=== PATIENT | male | born 1975 | race Caucasian/White ===

== ENCOUNTER 2019-06-05 16:22 | Outpatient (CLI) | payer OTHER, SELFPAY ==
--- NOTE | 2019-06-05 11:46 | DI.RAD_ITS ---
EXAM: XR CHEST 2V PA LATERAL XR CHEST 2V PA LATERAL CLINICAL HISTORY: SHORTNESS OF BREATH, R06.02, SARCOIDOSIS, D86.9 SHORTNESS OF BREATH, R06.02, SARCOIDOSIS, D86.9 TECHNIQUE: 2D digital imaging was performed. COMPARISON: No exams were available for comparison FINDINGS: The heart is not enlarged. The lungs are clear and well expanded. No pleural effusion seen. Mediastin al contours appear intact. IMPRESSION: Normal chest
== END 2019-06-05 16:42 ==
PROVIDERS: PCP Internal Medicine; Visit Provider Nurse Practitioner Family
DX: R06.02 Shortness of breath (principal); D86.9 Sarcoidosis, unspecified
CPT/HCPCS: 71046

== ENCOUNTER 2019-08-18 17:46 | Outpatient (REF) | payer OTHER, SELFPAY ==
[2019-08-18 21:31] LABS: Absolute Basophil Count 0.02 k/cumm (0.0-0.2); Absolute Eosinophil Count 0.12 k/cumm (0.0-0.7); Absolute Lymphocyte Count 1.12 k/cumm (1.2-3.4); Absolute Monocyte Count 0.34 k/cumm (0.11-0.7); Absolute Neutrophil Count 2.83 k/cumm (1.2-6.7); Basophils % 0.5; Eosinophils % 2.7; HGB 14.6 g/dL (13.5-17.5); Lymphocytes % 25.3; Mean Corp. HGB Concentration 34.8 g/dL (32.0-36.0); Mean Corpuscular Hemoglobin 30.9 pg (27.0-33.0); Mean Platelet Volume 9.4 fL (8.0-11.0); Monocytes % 7.7; Neutrophils % 63.8; Platelet Count 244 x1000/uL (130-400); RBC 4.72 m/cumm (4.50-6.00); RBC Distribution Width 12.2 % (11.8-14.1); White Blood Cell Count 4.43 k/cumm (4.4-10.8)
[2019-08-18 21:50] LABS: ALT 31 U/L (16-63); AST 17 U/L (15-37); Anion Gap 10.1 mmol/L (3-11); BUN 21 mg/dL (7-18); CO2 27.9 mmol/L (21.0-32.0); CREATININE 0.84 mg/dL (0.70-1.30); Calcium 9.6 mg/dL (8.5-10.1); Chloride 102 mmol/L (98-107); Glucose 95 mg/dL (74-106); Potassium 4.1 mmol/L (3.5-5.1); Sodium 140 mmol/L (136-145)
[2019-08-21 15:04] LABS: 1,25-Dihydroxyvitamin D 26 pg/mL (18-64)
== END 2019-08-18 18:06 ==
LOC: NCHCN 17:46
PROVIDERS: PCP Internal Medicine; Visit Provider Nurse Practitioner Family
DX: D86.9 Sarcoidosis, unspecified (principal)
CPT/HCPCS: 80048; 82652; 84450; 84460; 85025

== ENCOUNTER 2020-08-01 10:47 | Outpatient (CLI) | payer OTHER, SELFPAY ==
[2020-08-01 20:21] LABS: COVID-19 RT-PCR UVMMC Result Negative (Negative)
== END 2020-08-01 11:07 ==
PROVIDERS: PCP Internal Medicine; Visit Provider Nurse Practitioner Family
DX: Z11.59 Encounter for screening for other viral diseases (principal)
CPT/HCPCS: U0003

== ENCOUNTER → 2022-02-28 00:20 | Outpatient (CLI) | payer OTHER, SELFPAY ==
--- NOTE | 2022-02-28 | DI.CT_ITS ---
Exam(s) CT CHEST W EXAM: CT CHEST W CLINICAL HISTORY: SARCOIDOSIS, D86.9 TECHNIQUE: Imaging Protocol: Axial computed tomography images with coronal and sagittal reformatted images were created and reviewed CONTRAST MATERIAL: Intravenous: Omnipaque 350 Contrast volume:70 ml. COMPARISON: CR XR CHEST 2V PA LATERAL from 06/05/2019 FINDINGS: Tracheobronchial tree: No bronchiectasis or mucous plugging. Mediastinum and Annie: No dominant adenopathy or fluid collection. Pulmonary parenchyma: No consolidation or dominant measurable mass. No interstitial thickening. No em physematous changes. Pleura: No effusion or pneumothorax. Heart: The heart is not dilated. No coronary artery calcifications are seen. Aorta: Thoracic aorta non-dilated. Upper abdomen: Unremarkable. Lymph nodes: Within normal limits. Bones: Normal. Soft tissues: Unremarkable. IMPRESSION: Normal CT of the thorax. RADIATION DOSE DELIVERED: 435.23mGy.cm Total [facility]LP DATA REPOSITORY: All CT scans at this facility are submitted to the National Radiology Data Registry (NRDR) Dose Index Registry (DIR) with the [employer] (ACR). RADIATION OPTIMIZATION: All CT scans at this facility use at least one of these dose optimization te chniques: automated exposure control; mA and/or kV adjustment per patient size (includes targeted exa ms where dose is matched to clinical indication); or iterative reconstruction.
[2022-02-28] MEDS: Omnipaque 350 MG/ML 100 ML BTL IJ (08:28)
== END ==
PROVIDERS: PCP Internal Medicine; Visit Provider Nurse Practitioner Family
DX: D86.9 Sarcoidosis, unspecified (principal)
CPT/HCPCS: 71260; J3490

== ENCOUNTER 2022-10-31 15:05 | Outpatient (REF) | payer OTHER, SELFPAY ==
[2022-10-31 16:06] LABS: HCT 43.6 % (40.0-50.0); HGB 15.1 g/dL (13.5-17.5); MCH 31.5 pg (27.0-33.0); MCHC 34.6 % (32.0-36.0); MCV 91 fL (80-95); MPV 9.4 fL (8.0-11.0); Platelet Count 211 10^3/uL (130-400); RBC 4.79 10^6/uL (4.36-5.78); RDW 11.9 % (11.8-14.1); RDW-SD 39.8 fL; WBC 4.09 10^3/uL (4.4-10.8)
[2022-10-31 17:07] LABS: ALT 38 U/L (16-63); AST 22 U/L (15-37); Albumin 4.2 g/dL (3.4-5.0); Alkaline Phosphatase 82 U/L (46-116); Anion Gap 5.8 mmol/L (3-11); BUN 17 mg/dL (7-18); Bilirubin, Total 0.4 mg/dL (0.2-1.0); CO2 28.2 mmol/L (21.0-32.0); CREATININE 0.9 mg/dL (0.70-1.30); Calcium 9.2 mg/dL (8.5-10.1); Calculated LDL 167 mg/dL (<100); Chloride 105 mmol/L (98-107); Cholesterol 251 mg/dL (<200); Estimated GFR 106.67 (mL/min/1.73m2); Glucose 112 mg/dL (74-106); HDL Cholesterol 66 mg/dL (40-60); Potassium 4.3 mmol/L (3.5-5.1); Sodium 139 mmol/L (136-145); Triglyceride 90 mg/dL (<150)
== END 2022-10-31 15:06 | disposition home or self-care (01) ==
LOC: NCHCN 15:05
PROVIDERS: PCP Internal Medicine; Visit Provider Nurse Practitioner Family
DX: Z00.00 Encounter for general adult medical examination without abnormal findings (principal); Z13.0 Encounter for screening for diseases of the blood and blood-forming organs and certain disorders involving the immune mechanism; Z13.220 Encounter for screening for lipoid disorders; Z13.228 Encounter for screening for other metabolic disorders
CPT/HCPCS: 80053; 80061; 85027

== ENCOUNTER 2022-11-21 01:37 | Outpatient (CLI) | payer OTHER, SELFPAY ==
--- NOTE | 2022-11-21 08:10 | DI.MRI_ITS ---
Exam(s) MR UPPER JOINT RT WO EXAM: MR UPPER JOINT RT WO CLINICAL HISTORY: RT SHOULDER PAIN, M25.511 TECHNIQUE: Multiplanar multisequence MRI of the shoulder was performed. COMPARISON: CR RIGHT SHOULDER COMPLETE from 02/09/2013 CR XR CHEST 2V PA LATERAL from 06/05/2019 FINDINGS: There are no recent plain films of the shoulder available at the time of this MRI interpretation. Mo st recent plain film images are from 2012. MARROW:There is no evidence of fracture, Hill-Sachs deformity, nor ominous osseous lesions. Os acromi margoth noted. Small degenerative subarticular cysts are noted in the posterior-lateral aspect of the hu meral head subjacent to the infraspinatus insertion site. ROTATOR CUFF MECHANISM: AC JOINT/ACROMIUM: No obvious degenerative change in the AC joint.. There is an os acromiale evident. There is no prominent bone edema on either side of this finding. Supraspinatus: Mild increased signal consistent with mild tendinitis. No evidence of high-grade tear nor muscle atrophy. Infraspinatus: Intact. No evidence of tear nor muscle atrophy. Teres Minor: Intact. No evidence of tear nor muscle atrophy. Subscapularis/anterior cuff: Mild increased signal. No high-grade tear. No evidence of atrophy. BICEPS TENDON: Biceps tendon is not displaced from the intertubercular groove. No tear. No prominent tenosynovitis. LABRUM: No labral tear identified. No evidence of paralabral cyst. GLENOHUMERAL JOINT: No joint effusion nor obvious loose intra-articular bodies. No chondral defects. No osteophytes. No degenerative subarticular cysts. No evidence of capsular tear. The inferior gle nohumeral ligament is intact. QUADRILATERAL SPACE: No evidence of mass in the region of the axillary nerve and dorsal circumflex hu meral vessels. Visualized triceps muscle at this level appears unremarkable. IMPRESSION: 1. Mild findings as described above with mild increased signal in the supraspinatus tendon but no hig h-grade rotator cuff tendon tear. No muscle atrophy. 2. No evidence of biceps tendon nor labral tear. 3. Minimal degenerative changes in the glenohumeral and AC joints. Os acromial incidentally noted. DATA REPOSITORY:
== END 2022-11-21 01:57 ==
LOC: DI 01:38
PROVIDERS: PCP Internal Medicine; Visit Provider Nurse Practitioner Family
DX: M25.511 Pain in right shoulder (principal); M75.81 Other shoulder lesions, right shoulder; M25.811 Other specified joint disorders, right shoulder
CPT/HCPCS: 73221

== ENCOUNTER 2022-12-11 14:05 | Outpatient (CLI) | payer OTHER, SELFPAY ==
--- NOTE | 2022-12-11 13:45 | DI.RAD_ITS ---
Exam(s) XR SHOULDER RT COMPLETE 2+V EXAM: XR SHOULDER RT COMPLETE 2+V CLINICAL HISTORY: shoulder pain. TECHNIQUE: 2D digital imaging was performed. COMPARISON: CR RIGHT SHOULDER COMPLETE from 02/09/2013 CR XR CHEST 2V PA LATERAL from 06/05/2019 MR MR UPPER JOINT RT WO from 11/21/2022 FINDINGS: There is a healed midshaft fracture site in right clavicle. Os acromiale is noted, as was also evident on MRI scan of 11/21/2022 No evidence of acute fracture or dislocation. No obvious degenerative changes in the glenohumeral arturo int. No obvious degenerative changes in the AC joint. Coracoid process appears unremarkable. There are no abnormal soft tissue calcifications. IMPRESSION: Humeral head and osseous glenoid appear unremarkable as is glenohumeral joint. Os acromial which appears slightly tilted on the frontal view but this may be projectional. Healed midshaft fracture of the ipsilateral clavicle DATA REPOSITORY: RADIATION DOSE DELIVERED:
== END 2022-12-11 14:06 | disposition home or self-care (01) ==
LOC: DIORS 14:06
PROVIDERS: PCP Internal Medicine; Referring Provider Internal Medicine; Visit Provider Student in an Organized Health Care Education/Training Program
DX: M25.519 Pain in unspecified shoulder (principal); M67.911 Unspecified disorder of synovium and tendon, right shoulder
CPT/HCPCS: 73030

== ENCOUNTER 2022-12-27 17:44 | Emergency (ER) | payer OTHER, SELFPAY ==
[2022-12-27 17:49] VITALS: BP 126/84; PULSE 61; RESP 16; TEMP 36.8; O2SAT 100
--- NOTE | 2022-12-27 18:45 | DI.RAD_ITS ---
Exam(s) XR FINGER RT RING EXAM: XR FINGER RT RING CLINICAL HISTORY: pain distal finger. TECHNIQUE: 2D digital imaging was performed of the right finger. Three views were obtained. PA/AP, oblique, and lateral views were obtained. COMPARISON: There are no priors for comparison. FINDINGS: BONES: No acute fracture is present. No bony destructive lesion is seen. JOINTS: No dislocation present. SOFT TISSUE: No radiopaque foreign body. IMPRESSION: No evidence of acute fracture, dislocation, or subluxation. DATA REPOSITORY: RADIATION DOSE DELIVERED:
--- NOTE | 2022-12-27 18:45 | DI.RAD_ITS ---
Exam(s) XR FINGER RT MIDDLE EXAM: XR FINGER RT MIDDLE CLINICAL HISTORY: pain distal finger. TECHNIQUE: 2D digital imaging was performed of the right finger. Three views were obtained. PA/AP, oblique, and lateral views were obtained. COMPARISON: No exams were available for comparison FINDINGS: BONES: No acute fracture is present. No bony destructive lesion is seen. JOINTS: No dislocation present. SOFT TISSUE: Normal. IMPRESSION: No evidence of acute fracture, dislocation, or subluxation. DATA REPOSITORY: RADIATION DOSE DELIVERED:
[2022-12-27] MEDS: Ibuprofen 600 MG TAB PO (19:03)
--- NOTE | 2022-12-27 19:25 | ED.GENADUL_ITS ---
Discharge Plan Disposition Patient Disposition: Home Condition: Stable Discharge Details Clinical Impression: Subungual hematoma of fingernail, Contusion of finger Primary Care Provider: Bhavesh Shah ED Provider: Ivone Jensen Home Meds and New Rx's Prescriptions: Continued sertraline 100 mg tablet 100 mg PO DAILY Discharge Instructions Instructions: Contusion in Adults (ED), Hematoma (ED) Additional Instructions: Take ibuprofen and Tylenol as needed for pain Ice as needed Repeat films in 1 week should you have persistent pain with your doctor Return earlier should you have new or worsening complaints Referrals: Bhavesh Shah MD [Primary Care Provider] - Discharge Data Discharge Date/Time-TO BE ENTERED AT DEPARTURE: 12/27/22 20:10 Medical Decision Making 47-year-old male presenting with trauma to third and fourth digits on hand X-ray was ordered for further evaluation, does not show evidence of acute abnormality per radiology interpretation my review Return precautions reviewed and patient expressed understanding Repeat imaging in 1 week with persistent pain HPI General Date/Time Provider Initiated Documentation: 12/27/22 18:42 . HPI Narrative: This 47-year-old male presents with injury to right hand just prior to arrival. He closed his third and fourth digits in the car door. Denies any additional complaints. Related Data Home Medications Medication Instructions Recorded Confirmed sertraline 100 mg tablet 100 mg PO DAILY 11/27/22 12/27/22 Allergies Allergy/AdvReac Type Severity Reaction Status Date / Time No Known Drug Allergies Allergy Unverified 12/27/22 17:52 General Stated Complaint: Orthopedic YESSICA: 4 PFSH All Active Problems (Updated 12/27/22 @ 20:00 by CHINEDU Calderon) Subungual hematoma of fingernail (Acute) Contusion of finger (Acute) Tendinopathy of right rotator cuff (Acute) Medical History (Updated 12/27/22 @ 20:00 by CHINEDU Calderon) Generalized anxiety disorder Sarcoidosis Social History Smoking/Tobacco Use Status: Never Smoking risk assessment performed?: Yes Alcohol Intake: current Alcohol Intake frequency: a few times a week Drug use: Never Substance use type: does not use Current gender identity: male Do you feel safe at home: Yes Do you feel safe in your relationship?: Yes Exam Extrem Other: Right third and fourth digit ecchymosis, tenderness, no evidence of open fracture, no tenderness to hand or proximal phalanx Course Vital Signs Vital signs: Vital Signs Temperature 36.8 C 12/27/22 17:49 Pulse 61 12/27/22 17:49 Respiratory Rate 16 12/27/22 17:49 Blood Pressure 126/84 12/27/22 17:49 Pulse Oximetry 100 12/27/22 17:49 Temperature 36.8 C 12/27/22 17:49 Temperature Source Temporal Artery Scan 12/27/22 17:49 Pulse 61 12/27/22 17:49 Respiratory Rate 16 12/27/22 17:49 Respiratory Effort Normal, Non-Labored 12/27/22 17:53 Blood Pressure 126/84 12/27/22 17:49 Blood Pressure Position Sitting 12/27/22 17:49 Pulse Oximetry 100 12/27/22 17:49 Oxygen Delivery Method Room Air 12/27/22 17:49 Oxygen Flow Rate 0 12/27/22 17:49 PAWSS Have you Been Recently Intoxicated or Drunk Within the Last 30 days?: No Have you Ever Experienced Previous Episodes of Alcohol Withdrawal?: No Have you ever Experienced Withdrawal Seizures?: No Have you ever Experienced Delirium Tremens(DT)s?: No Have you ever undergone Alcohol Rehabilitation Treatment (i.e, inpt ot outpatient treatment programs)?: No Have you ever Experienced Blackouts?: No Have you ever Combined Alcohol with other Downers within the last 90 days?: No Have you ever Combined Alcohol with any other Substance of Abuse during the last 90 days?: No Positive Blood Alcohol level on Presentation? [PCS.BAL]: No Evidence of Increased Autonomic Activity (i.e. HR>120, tremor, sweating, agitation, nausea)?: No Result: 0
--- NOTE | 2022-12-27 20:06 | DI.VRAD_ITS ---
PROCEDURE INFORMATION: Exam: XR Right Finger(s) Exam date and time: 12/27/2022 7:31 PM Age: 47 years old Clinical indication: Injury or trauma; Crushing; Right; Middle finger; Injury date: 12/27/22; Injury details: Fingers shut in door, distal pain TECHNIQUE: Imaging protocol: Radiologic exam of the right fingers. Views: Minimum 2 views. COMPARISON: MR UPPER JOINT RT WO 11/21/2022 7:40 AM FINDINGS: Bones/joints: Normal. Soft tissues: Normal. IMPRESSION: No acute findings. Dictated and Authenticated by: Alok Lott MD. Ordering:TANK Wiseman MD
--- NOTE | 2022-12-27 20:07 | DI.VRAD_ITS ---
PROCEDURE INFORMATION: Exam: XR Right Finger(s) Exam date and time: 12/27/2022 7:32 PM Age: 47 years old Clinical indication: Injury or trauma; Other: Shut in door; Crushing; Right; Ring finger; Injury date: 12/27/22; Injury details: Fingers sut in door, distal pain TECHNIQUE: Imaging protocol: Radiologic exam of the right fingers. Views: Minimum 2 views. COMPARISON: CR XR FINGER RT MIDDLE 12/27/2022 7:31 PM FINDINGS: Bones/joints: No fracture. No dislocation. Soft tissues: Soft tissue swelling. No foreign body. IMPRESSION: 1. No fracture or dislocation. 2. Soft tissue swelling. No gas or foreign body. Dictated and Authenticated by: Alok Lott MD. Ordering:TANK Wiseman MD
== END 2022-12-27 20:10 | disposition home or self-care (01) ==
PROVIDERS: Emergency Provider Physician Assistant; PCP Internal Medicine
DX: S60.031A Contusion of right middle finger without damage to nail, initial encounter (principal); S60.041A Contusion of right ring finger without damage to nail, initial encounter; W23.0XXA Caught, crushed, jammed, or pinched between moving objects, initial encounter
CPT/HCPCS: 99282; 73140; 99283

== ENCOUNTER 2023-11-06 10:36 | Outpatient (REF) | payer OTHER, SELFPAY ==
[2023-11-06 14:33] LABS: HGB 14.5 g/dL (13.5-17.5); MCH 30.9 pg (27.0-33.0); MCHC 34.5 % (32.0-36.0); MCV 89 fL (80-95); MPV 9.1 fL (8.0-11.0); Platelet Count 211 10^3/uL (130-400); RDW 11.9 % (11.8-14.1); RDW-SD 38.5 fL; WBC 3.66 10^3/uL (4.4-10.8)
[2023-11-06 14:57] LABS: ALT 36 U/L (16-63); AST 17 U/L (15-37); Alkaline Phosphatase 76 U/L (46-116); Anion Gap 8.8 mmol/L (3-11); BUN 18 mg/dL (7-18); Bilirubin, Total 0.3 mg/dL (0.2-1.0); CO2 26.2 mmol/L (21.0-32.0); CREATININE 0.9 mg/dL (0.70-1.30); Calcium 9.1 mg/dL (8.5-10.1); Calculated LDL 168 mg/dL (<100); Chloride 104 mmol/L (98-107); Cholesterol 250 mg/dL (<200); Estimated GFR 106.01 (mL/min/1.73m2); Glucose 109 mg/dL (74-106); HDL Cholesterol 59 mg/dL (40-60); Potassium 4.1 mmol/L (3.5-5.1); Sodium 139 mmol/L (136-145); Triglyceride 117 mg/dL (<150)
== END 2023-11-06 10:37 | disposition home or self-care (01) ==
LOC: NCHCN 10:36
PROVIDERS: PCP Internal Medicine; Visit Provider Nurse Practitioner Family
DX: Z00.00 Encounter for general adult medical examination without abnormal findings (principal)
CPT/HCPCS: 80053; 80061; 85027

== ENCOUNTER 2025-01-07 09:02 | Outpatient (REF) | payer OTHER, SELFPAY ==
[2025-01-07 15:30] LABS: HCT 45.3 % (40.0-50.0); HGB 15.4 g/dL (13.5-17.5); MCH 30.7 pg (27.0-33.0); MCV 90 fL (80-95); MPV 9.1 fL (8.0-11.0); Platelet Count 228 10^3/uL (130-400); RBC 5.01 10^6/uL (4.36-5.78); RDW-SD 39.6 fL; WBC 4.46 10^3/uL (4.4-10.8)
[2025-01-07 16:05] LABS: ALT 39 U/L (16-63); AST 25 U/L (15-37); Albumin 4.1 g/dL (3.4-5.0); Alkaline Phosphatase 89 U/L (46-116); Anion Gap 5.5 mmol/L (3-11); BUN 17 mg/dL (7-18); Bilirubin, Total 0.4 mg/dL (0.2-1.0); CO2 30.5 mmol/L (21.0-32.0); CREATININE 0.9 mg/dL (0.70-1.30); Calcium 9.4 mg/dL (8.5-10.1); Chloride 103 mmol/L (98-107); Estimated GFR 105.35 (mL/min/1.73m2); Glucose 107 mg/dL (74-106); Potassium 4.3 mmol/L (3.5-5.1); Sodium 139 mmol/L (136-145); Total Protein 6.8 g/dL (6.4-8.2)
== END 2025-01-07 09:03 | disposition home or self-care (01) ==
LOC: NCHCN 09:02
PROVIDERS: PCP Nurse Practitioner Family; Visit Provider Nurse Practitioner Family
DX: Z00.00 Encounter for general adult medical examination without abnormal findings (principal)
CPT/HCPCS: 80053; 85027

== ENCOUNTER 2025-04-28 13:25 | Outpatient (CLI) | payer OTHER, SELFPAY ==
--- NOTE | 2025-04-28 12:35 | DI.RAD_ITS ---
Exam(s) XR CHEST 2V PA LATERAL EXAM: XR CHEST 2V PA LATERAL CLINICAL HISTORY: ACUTE COUGH, R05.1. TECHNIQUE: 2D digital imaging was performed. COMPARISON: CR XR CHEST 2V PA LATERAL from 06/05/2019 FINDINGS: 2 views: Heart size is normal. The mediastinum is not widened. Lungs are clear. No infiltrates nor pleural effusions. IMPRESSION: No acute pulmonary findings. DATA REPOSITORY: RADIATION DOSE DELIVERED:
== END 2025-04-28 13:45 ==
LOC: DI 06-11 13:25
PROVIDERS: PCP Family Medicine; Visit Provider Nurse Practitioner Family
DX: R05.1 Acute cough (principal)
CPT/HCPCS: 71046

== ENCOUNTER 2025-04-30 02:54 | Emergency (ER) | payer OTHER, SELFPAY ==
[2025-04-30] VITALS (17 sets, daily range): BP systolic 123–140; BP diastolic 77–96; PULSE 59–101; RESP 18; TEMP 37.2; O2SAT 90–98
--- NOTE | 2025-04-30 03:15 | DI.RAD_ITS ---
Exam(s) XR CHEST 2V PA LATERAL EXAM: XR CHEST 2V PA LATERAL CLINICAL HISTORY: sob TECHNIQUE: 2D digital imaging was performed of the chest. Two images were obtained. PA and lateral views were obtained. COMPARISON: CR XR CHEST 2V PA LATERAL from 06/05/2019 CR XR CHEST 2V PA LATERAL from 04/28/2025 FINDINGS: MEDIASTINUM: Normal. HEART: Normal. PULMONARY VASCULATURE: Normal. LUNGS: Clear. PLEURAL SPACE: No pleural effusion or pneumothorax. BONE:Within normal limits for the patient's age. OTHER FINDINGS:Normal. IMPRESSION: 1. No acute pulmonary findings. 2. The preliminary [facility] report was reviewed. DATA REPOSITORY: RADIATION DOSE DELIVERED:
--- NOTE | 2025-04-30 03:26 | W.ED.GENAD ---
Discharge Plan Disposition Patient Disposition: Home Condition: Good Discharge Details Clinical Impression: Bronchitis Primary Care Provider: Carol Welch ED Provider: Marylin Villa Home Meds and New Rx's Prescriptions: Continued sertraline 100 mg tablet 100 mg PO DAILY albuterol sulfate 90 mcg/actuation HFA aerosol inhaler 2 puff INHALATION PRN Patient Comments: INHALE TWO PUFFS BY MOUTH EVERY 4 HOURS NEEDED FOR SHORTNESS OF BREATH COUGH OR WHEEZE azithromycin 250 mg tablet 250 mg PO DAILY Discharge Instructions Instructions: Bronchitis, Adult ED Additional Instructions: Continue to use your inhaler as needed at home. Call your primary care doctor in the morning to schedule an appointment to be seen within the next 72 hours to followup on your visit today. Return to the emergency deaprtment for new or worsening symptoms including fever higher than 100.4F, coughing up blood, of your breathing worsens, or if you have any other concerns. HPI General Mode of arrival: ambulatory. Date/Time Provider Initiated Documentation: 04/30/25 03:09. Limitations to Documentation: no limitations. Information obtained by: patient and family. HPI Narrative: 50yo M presenting with three weeks of cough. Initially started with cough, SOB, and rhinnorhea. Seemed to get better and then got worse again. Cough is keeping him awake tonight, once he gets started feels like he can't stop. No chest pain. Has seen his PCP and been to urgent care, reports starting antibiotics yesterday for 'walking pneumonia'. No fevers, chills, or rash. No sick contacts. No history of asthma or COPD. Is otherwise in his usual state of health. Related Data Home Medications ?Medication ?Instructions ?Recorded ?Confirmed sertraline 100 mg tablet 100 mg PO DAILY 11/27/22 04/30/25 albuterol sulfate 90 mcg/actuation 2 puff inhalation PRN 04/30/25 aerosol inhaler azithromycin 250 mg tablet 250 mg PO DAILY 04/30/25 04/30/25 Allergies Allergy/AdvReac Type Severity Reaction Status Date / Time No Known Drug Allergies Allergy Unknown Unknown Verified 04/30/25 03:09 General Stated Complaint: RespSymp YESSICA: 3 Review of Systems Narrative: see HPI Exam Narrative Exam Narrative: General: Alert, well appearing, well nourished, in no acute distress. Head: Normocephalic, atraumatic Neck: Trachea midline, ?Neck supple. ENT: ?MMM.? +nasal congestion, rhinnorhea Cardiac: ?RRR, no murmurs appreciated Resp: No respiratory distress. Slight expiratory wheeze, otherwise CTAB. No increased WOB. +cough triggered by deep breathing. Abd: ?Non-distende : ?No suprapubic tenderness. No CVA tenderness. Extremities: ?No deformities.? No peripheral edema. Neurologic: GCS 15. ? Moves all extremities freely against gravity Course Vital Signs Vital signs: Vital Signs Temperature 37.2 C 04/30/25 03:06 Pulse 86 04/30/25 03:06 Respiratory Rate 18 04/30/25 03:06 Blood Pressure 140/96 H 04/30/25 03:06 Pulse Oximetry 97 04/30/25 03:06 Temperature 37.2 C 04/30/25 03:06 Temperature Source Oral 04/30/25 03:06 Pulse 85 04/30/25 03:10 Respiratory Rate 18 04/30/25 03:10 Respiratory Effort Normal, Short of Breath 04/30/25 03:10 Respiratory Depth Normal 04/30/25 03:10 Blood Pressure 140/96 H 04/30/25 03:10 Pulse Oximetry 95 04/30/25 03:10 Oxygen Delivery Method Room Air 04/30/25 03:10 Pain Level 6 04/30/25 03:10 Medical Decision Making 50yo M presenting with three weeks of cough. Initially started with cough, SOB, and rhinnorhea; seemed to get better and then got worse again. Started on antibiotics yesterday for 'walking pneumonia'; tonight cough is keeping him awake and so presents to the ED. Productive of clear sputum. Vital signs reassuring on arrival. No respiratory distress; does have slight expiratory wheeze with no increased WOB. History not suggestive of ACS, pulmonary embolism, heart failure. Will treat with albuterol neb. Given duration of symptoms, will send labs and get CXR. -Labs reviewed as below, CBC reassuring with no leukocytosis or anemia, CMP with no actionable abnormalities, VBG reassuring. Respiratory viral swab negative for covid and flu. -CXR independently reviewed; no focal pneumonia or pneumothorax on my radiology read with no acute findings. On reassessment he reports his breathing feels better. Able to take deep breaths without coughing. No longer wheezing on exam. Advised symptomatic treatment at home, close PCP followup. Discharged home; discharge instructions and return precautions were reviewed with patient who verbalized understanding. All questions were answered and he is in full agreement with the plan. Medical Records Medical records reviewed: Yes I reviewed the patient's medical records. Medical records narrative: Laboratory Tests Range/Units 04/30/25 04/30/25 03:37 03:45 WBC (4.4-10.8) 10^3/uL 5.89 RBC (4.36-5.78) 10^6/uL 4.73 Hgb (13.5-17.5) g/dL 14.7 Hct (40.0-50.0) % 42.6 MCV (80-95) fL 90 MCH (27.0-33.0) pg 31.1 MCHC (32.0-36.0) % 34.5 RDW (11.8-14.1) % 12.3 Plt Count (130-400) 10^3/uL 185 MPV (8.0-11.0) fL 8.5 Immature Gran % % 0.3 Neutrophils % % 57.5 Lymphocytes % % 20.7 Monocytes % % 7.1 Eosinophils % % 13.4 Basophils % % 1.0 Nucleated RBC % (0.0-0.3) % 0.0 Absolute Neutrophils (1.2-6.7) 10^3/uL 3.38 Absolute Lymphocytes (1.2-3.4) 10^3/uL 1.22 Absolute Monocytes (0.1-0.8) 10^3/uL 0.42 Absolute Eosinophils (0.0-0.7) 10^3/uL 0.79 H Absolute Basophils (0.0-0.2) 10^3/uL 0.06 VBG pH (7.31-7.41) 7.39 VBG pCO2 (41-51) mmHg 40 L VBG pO2 mmHg 60 VBG HCO3 (23-28) mmol/L 24 VBG Total CO2 (24-29) mmol/L 21 L VBG O2 Saturation % 90 VBG Base Excess (-2-3) mmol/L -1 Sodium (136-145) mmol/L 140 Potassium (3.5-5.1) mmol/L 4.0 Chloride (98-107) mmol/L 106 Carbon Dioxide (21.0-32.0) mmol/L 26.1 Anion Gap (3-11) mmol/L 7.9 BUN (7-18) mg/dL 17 Creatinine (0.70-1.30) mg/dL 1.0 Est GFR (CKD-EPI 2020) (mL/min/1.73m2) 92.26 Glucose (74-106) mg/dL 114 H Calcium (8.5-10.1) mg/dL 8.8 Total Bilirubin (0.2-1.0) mg/dL 0.5 AST (15-37) U/L 16 ALT (16-63) U/L 30 Alkaline Phosphatase (46-116) U/L 98 Total Protein (6.4-8.2) g/dL 6.9 Albumin (3.4-5.0) g/dL 3.9 COVID-19 Source Nasopharynx SARS-CoV-2 (PCR) (Negative) Negative Influenza Type A (PCR) (Negative) Negative Influenza Type B (PCR) (Negative) Negative RSV (PCR) (Negative) Negative PFSH All Active Problems (Updated 04/30/25 @ 04:53 by Marylin Villa MD) Bronchitis (Acute) Tendinopathy of right rotator cuff (Acute) Medical History (Updated 04/30/25 @ 04:53 by Marylin Villa MD) Sarcoidosis Generalized anxiety disorder Social History Smoking/Tobacco Use Status: Never Smoking risk assessment performed?: Yes Alcohol Intake: current Alcohol Intake frequency: a few times a week Drug use: Never Substance use type: does not use Current gender identity: male Do you feel safe at home: Yes Do you feel safe in your relationship?: Yes PAWSS Have you Been Recently Intoxicated or Drunk Within the Last 30 days?: No Have you Ever Experienced Previous Episodes of Alcohol Withdrawal?: No Have you ever Experienced Withdrawal Seizures?: No Have you ever Experienced Delirium Tremens(DT)s?: No Have you ever undergone Alcohol Rehabilitation Treatment (i.e, inpt ot outpatient treatment programs)?: No Have you ever Experienced Blackouts?: No Have you ever Combined Alcohol with other Downers within the last 90 days?: No Have you ever Combined Alcohol with any other Substance of Abuse during the last 90 days?: No Positive Blood Alcohol level on Presentation? [PCS.BAL]: No Evidence of Increased Autonomic Activity (i.e. HR>120, tremor, sweating, agitation, nausea)?: No Result: 0
[2025-04-30 03:42] LABS: BE (Venous) -1 mmol/L (-2-3); HCO3 (Venous) 24 mmol/L (23-28); O2 Sat (Venous) 90 %; TCO2 (Venous) 21 mmol/L (24-29); pCO2 (Venous) 40 mmHg (41-51); pO2 (Venous) 60 mmHg
[2025-04-30] MEDS: Albuterol 2.5 MG/3 ML INH SOLN VIAL UPD (03:42)
[2025-04-30 03:44] LABS: Abs Immature Grans 0.02 10^3/uL (0.0-0.06); HCT 42.6 % (40.0-50.0); HGB 14.7 g/dL (13.5-17.5); Immature Grans % 0.3 %; MCH 31.1 pg (27.0-33.0); MCHC 34.5 % (32.0-36.0); MCV 90 fL (80-95); MPV 8.5 fL (8.0-11.0); Platelet Count 185 10^3/uL (130-400); RBC 4.73 10^6/uL (4.36-5.78); RDW 12.3 % (11.8-14.1); RDW-SD 41.1 fL; WBC 5.89 10^3/uL (4.4-10.8)
[2025-04-30 04:02] LABS: ALT 30 U/L (16-63); AST 16 U/L (15-37); Albumin 3.9 g/dL (3.4-5.0); Alkaline Phosphatase 98 U/L (46-116); Anion Gap 7.9 mmol/L (3-11); BUN 17 mg/dL (7-18); Bilirubin, Total 0.5 mg/dL (0.2-1.0); CO2 26.1 mmol/L (21.0-32.0); Calcium 8.8 mg/dL (8.5-10.1); Chloride 106 mmol/L (98-107); Estimated GFR 92.26 (mL/min/1.73m2); Glucose 114 mg/dL (74-106); Potassium 4.0 mmol/L (3.5-5.1); Sodium 140 mmol/L (136-145); Total Protein 6.9 g/dL (6.4-8.2)
[2025-04-30 04:24] LABS: COVID-19 PCR Negative (Negative); RSV PCR Negative (Negative)
--- NOTE | 2025-04-30 04:43 | DI.VRAD_ITS ---
PROCEDURE INFORMATION: Exam: XR Chest Exam date and time: 04/30/2025 3:35 AM Age: 50 years old Clinical indication: Cough and shortness of breath; SOB, cough TECHNIQUE: Imaging protocol: Radiologic exam of the chest. Views: 2 views. COMPARISON: 1. CR XR CHEST 2V PA LATERAL 04/28/2025 12:30 PM 2. CR XR CHEST 2V PA LATERAL 06/05/2019 11:44 AM FINDINGS: Lungs: No consolidation or pulmonary edema. Pulmonary vasculature is normal in caliber. Pleural spaces: No pleural effusion or pneumothorax. Heart/Mediastinum: Heart size is normal. Cardiomediastinal contours are stable and satisfactory. Bones/joints: Old healed fracture of the mid right clavicle. No acute abnormality. IMPRESSION: No active disease in the chest. Dictated and Authenticated by: Ling Asher MD. Orderin Allen Coulter MD
== END 2025-04-30 05:06 | disposition home or self-care (01) ==
PROVIDERS: Emergency Provider Student in an Organized Health Care Education/Training Program; PCP Nurse Practitioner Family
DX: J40 Bronchitis, not specified as acute or chronic (principal)
CPT/HCPCS: 99283; 99284; 94640; 80053; 82805; 87637; 71046; 85025; J7613

== ENCOUNTER 2025-05-12 11:30 | Outpatient (CLI) | payer OTHER, SELFPAY ==
[2025-05-12] MEDS: Normal Saline - Diluent 50 ML VIAL IJ (11:19)
[2025-05-12] MEDS: Normal Saline Flush 10 ML SYR IVP (11:19)
[2025-05-12] MEDS: Omnipaque 350 MG/ML 500 ML BTL-Imaging package IJ (11:21)
--- NOTE | 2025-05-12 11:25 | DI.CT_ITS ---
Exam(s) CT CHEST W EXAM: CT CHEST W CLINICAL HISTORY: SARCOIDOSIS, D86.9 TECHNIQUE: Imaging Protocol: Axial computed tomography images with coronal and sagittal reformatted images were created and reviewed. Computer aided detection (CAD) was utilized. CONTRAST MATERIAL: Intravenous: Omnipaque 350 Contrast volume:70 ml. COMPARISON: CT CT CHEST W from 02/28/2022 CR,XR XR CHEST 2V PA LATERAL from 04/30/2025 FINDINGS: Pulmonary parenchyma: No consolidation. No dominant measurable mass. No abnormal interstitial changes. No pulmonary nodules. Tracheobronchial tree: No bronchiectasis or mucous plugging. Mediastinum and Annie: No dominant adenopathy or fluid collection. Pleura: No effusion. No pneumothorax. Heart: The heart is not dilated. No coronary artery calcifications are seen. Aorta: Thoracic aorta non-dilated. No atherosclerotic changes. Pulmonary arteries: No gross evidence of emboli. Upper abdomen: No acute findings. Bones: 2 normal for patient age. Soft tissues: Unremarkable. IMPRESSION: The chest CT. RADIATION DOSE DELIVERED: 165.42mGy.cm Total DLP DATA REPOSITORY: All CT scans at this facility are submitted to the National Radiology Data Registry (NRDR) Dose Index Registry (DIR) with the [employer] (ACR). RADIATION OPTIMIZATION: All CT scans at this facility use at least one of these dose optimization techniques: automated exposure control; mA and/or kV adjustment per patient size (includes targeted exams where dose is matched to clinical indication); or iterative reconstruction.
== END 2025-05-12 11:50 ==
PROVIDERS: PCP Nurse Practitioner Family; Visit Provider Nurse Practitioner Family
DX: D86.89 Sarcoidosis of other sites (principal)
CPT/HCPCS: 71260

== ENCOUNTER 2025-05-19 02:10 | Emergency (ER) | payer OTHER, SELFPAY ==
--- NOTE | 2025-05-19 02:12 | W.ED.GENAD ---
Discharge Plan Disposition Patient Disposition: Home Condition: Good Discharge Details Clinical Impression: Right-sided chest wall pain Primary Care Provider: Taurus Novoa ED Provider: Baldemar Newman [place] Meds and New Rx's Prescriptions: New methocarbamol 500 mg tablet 1,000 mg PO TID PRN (Reason: muscle spasm) Qty: 30 0RF lidocaine 5 % adhesive patch,medicated 1 patch topical DAILY Qty: 15 0RF Rx Instructions: leave on most painful area for up to 12 hrs Continued omeprazole 20 mg capsule,delayed release(DR/EC) 20 mg PO DAILY Patient Comments: TAKE ONE CAPSULE BY MOUTH EVERY DAY budesonide-formoterol [Breyna] 160-4.5 mcg/actuation HFA aerosol inhaler 2 puff inhalation BID Qty: 10.2 6RF sertraline 100 mg tablet 100 mg PO DAILY albuterol sulfate 90 mcg/actuation HFA aerosol inhaler 2 puff INHALATION PRN Patient Comments: INHALE TWO PUFFS BY MOUTH EVERY 4 HOURS NEEDED FOR SHORTNESS OF BREATH COUGH OR WHEEZE Discharge Instructions Additional Instructions: You were seen for right sided chest and flank pain. Your exam, labs, chest x-ray are reassuring and your symptoms improved with lidocaine patch and muscle relaxer. I would continue alternating acetaminophen with ibuprofen and using heat on and off as you have been doing. I will send prescriptions for lidocaine patches and methocarbamol to your pharmacy. Follow-up with primary care next week. Return to ED for new or worsening pain, syncope, increasing shortness of breath, fever, abdominal pain, other concerns. Referrals: Taurus Novoa MD [Primary Care Provider, Medicine] [facility] General Mode of arrival: ambulatory. Date/Time Provider Initiated Documentation: 05/19/25 02:12. Limitations to Documentation: no limitations. Information obtained by: patient, RN notes reviewed and old records reviewed. HPI Narrative: Patient presents to ED with right sided flank pain. Patient states that he thinks he pulled a muscle at work last week. He also has been having trouble with asthma and cough, just seen pulmonary yesterday. Thinks the coughing is aggravating the pain that he is having in the right side. Tonight was coughing and developed much worse pain, sharp stabbing instances of pain, maybe some increased shortness of breath but cannot really tell if it is related to pain or true dyspnea. Not having pain elsewhere. Has had no hematuria. Denies fever. Denies abdominal pain, vomiting or diarrhea. Denies any leg pain or leg swelling. Had ibuprofen this evening with dinner. Found an old prescription of Tylenol with oxycodone which she took about an hour prior to coming in but with no relief of his pain. Related Data Home Medications ?Medication ?Instructions ?Recorded ?Confirmed sertraline 100 mg tablet 100 mg PO DAILY 11/27/22 05/18/25 albuterol sulfate 90 mcg/actuation 2 puff inhalation PRN 04/30/25 05/18/25 aerosol inhaler budesonide-formoterol HFA 160 2 puff inhalation BID #10.2 grams 05/18/25 05/18/25 mcg-4.5 mcg/actuation aerosol inhaler (Breyna) omeprazole 20 mg capsule,delayed 20 mg PO DAILY 05/18/25 05/18/25 release lidocaine 5 % topical patch 1 patch topical DAILY #15 ea 05/19/25 methocarbamol 500 mg tablet 1,000 mg (2 x 500 mg) PO TID PRN 05/19/25 muscle spasm #30 tabs Previous Rx's ?Medication ?Instructions ?Recorded budesonide-formoterol HFA 160 2 puff inhalation BID #10.2 grams 05/18/25 mcg-4.5 mcg/actuation aerosol inhaler (Breyna) lidocaine 5 % topical patch 1 patch topical DAILY #15 ea 05/19/25 methocarbamol 500 mg tablet 1,000 mg (2 x 500 mg) PO TID PRN 05/19/25 muscle spasm #30 tabs Allergies Allergy/AdvReac Type Severity Reaction Status Date / Time No Known Drug Allergies Allergy Unknown Unknown Verified 05/18/25 14:37 General YESSICA: 3 Exam Narrative Exam Narrative: Const: WDWN male appears very uncomfortable holding his right flank/lower ribs. VS per triage. HEENT: NC/AT. Normal facial exam. Neck: Supple. Trachea midline. Lungs: Normal respiratory effort. Lungs are clear. Cor: RRR without murmur. Good radial pulses. GI: Soft/ND/NT. Neuro: A+O x 3. Normal speech, mentation, gait. Cranial nerves II - XII grossly intact. No gross motor or sensory deficit. Medical Decision Making Patient presenting to ED with right mid flank pain, holding his right lower ribs and upper flank. He relates that to injury at work last week that continues to get reaggravated when he has coughing fits. Denies fever, hematuria, urinary symptoms, GI symptoms. May very well be musculoskeletal and muscle spasm as he describes. However, should consider possibility of PE, pneumothorax, kidney stone/pyelonephritis, gallbladder or liver issues. In any event he is very uncomfortable at this time. Will place IV and give IV ketorolac, oral methocarbamol and place lidocaine patch. Will reevaluate for symptom relief. Will obtain labs including a D-dimer. Chest imaging per D-dimer result. Patient's laboratory studies are reassuring and essentially normal. Urinalysis negative. D-dimer negative. Patient's symptoms markedly improved with the lidocaine patch and methocarbamol. Chest x-ray was obtained. Per my read no evidence of pneumothorax or other acute process. Patient to continue using ibuprofen and acetaminophen in alternating fashion as well as heat. Prescriptions for methocarbamol and lidocaine patches sent to pharmacy. Follow-up with primary care next week. Return precautions provided. Medical Records Medical records reviewed: Yes I reviewed the patient's medical records. Medical records narrative: pulmonary note Lab Data Lab results reviewed: Yes I reviewed the patient's lab results. Lab results narrative: see [facility] All Active Problems (Updated 05/19/25 @ 03:45 by Baldemar Newman MD) Right-sided chest wall pain (Acute) Cutaneous sarcoidosis (Acute) Dyspnea (Acute) Acute cough (Acute) Wheezing (Acute) Seasonal allergies (Acute) Mild intermittent asthma (Acute) Sinusitis (Acute) Lateral epicondylitis (Acute) Body mass index 25.0-25.9, adult (Acute) Pain, joint, shoulder, right (Acute) Plantar wart of left foot (Acute) Bronchitis (Acute) Tendinopathy of right rotator cuff (Acute) Medical History (Updated 05/19/25 @ 03:45 by Baldemar Newman MD) Screening for malignant neoplasm of colon Generalized anxiety disorder Social History Smoking/Tobacco Use Status: Former Tobacco Use Smoking risk assessment performed?: Yes Alcohol Intake: current Alcohol Intake frequency: a few times a week Drug use: Never Substance use type: does not use Current gender identity: male Do you feel safe at home: Yes Do you feel safe in your relationship?: Yes
[2025-05-19 02:15] VITALS: BP 126/92; PULSE 67; RESP 18; TEMP 36.9; O2SAT 97
[2025-05-19] MEDS: Ketorolac 15 MG/ML VIAL IVP (02:45)
[2025-05-19] MEDS: Lidocaine 5% Patch 1 PATCH TP (02:46)
[2025-05-19] MEDS: Methocarbamol 500 MG TAB 1000 MG PO (02:46)
[2025-05-19 02:53] LABS: Abs Immature Grans 0.03 10^3/uL (0.0-0.06); HCT 44.3 % (40.0-50.0); HGB 14.8 g/dL (13.5-17.5); Immature Grans % 0.3 %; MCH 30.8 pg (27.0-33.0); MCHC 33.4 % (32.0-36.0); MCV 92 fL (80-95); MPV 8.6 fL (8.0-11.0); Platelet Count 174 10^3/uL (130-400); RBC 4.80 10^6/uL (4.36-5.78); RDW 12.3 % (11.8-14.1); RDW-SD 42.6 fL; WBC 8.70 10^3/uL (4.4-10.8)
[2025-05-19 02:55] LABS: Glucose Negative (Negative)
[2025-05-19 03:07] LABS: ALT 34 U/L (16-63); AST 13 U/L (15-37); Albumin 3.9 g/dL (3.4-5.0); Alkaline Phosphatase 96 U/L (46-116); Anion Gap 6.6 mmol/L (3-11); BUN 13 mg/dL (7-18); Bilirubin, Total 0.5 mg/dL (0.2-1.0); CO2 27.4 mmol/L (21.0-32.0); Calcium 8.8 mg/dL (8.5-10.1); Chloride 104 mmol/L (98-107); Estimated GFR 82.29 (mL/min/1.73m2); Glucose 113 mg/dL (74-106); Lipase 27 U/L (<78); Potassium 4.7 mmol/L (3.5-5.1); Sodium 138 mmol/L (136-145); Total Protein 6.7 g/dL (6.4-8.2)
--- NOTE | 2025-05-19 03:15 | DI.RAD_ITS ---
Exam(s) XR CHEST 2V PA LATERAL EXAM: XR CHEST 2V PA LATERAL CLINICAL HISTORY: right side CP. TECHNIQUE: 2D digital imaging was performed. COMPARISON: No exams were available for comparison FINDINGS: 2 views: Heart size is normal. The mediastinum is not widened. Right lung clear. There are mild increased markings left lower lobe retrocardiac region unchanged from previous and most probably vascular. There are no obvious confluent infiltrates. No pleural effusions. IMPRESSION: No acute pulmonary findings. DATA REPOSITORY: RADIATION DOSE DELIVERED:
[2025-05-19 03:17] LABS: D-Dimer 360 ng/mlFEU (<500)
[2025-05-19 04:07] VITALS: BP 124/80; PULSE 74; RESP 18; O2SAT 98
--- NOTE | 2025-05-19 04:32 | DI.VRAD_ITS ---
PROCEDURE INFORMATION: Exam: XR Chest Exam date and time: 05/19/2025 3:38 AM Age: 50 years old Clinical indication: Pain; Right-sided; R sided cp TECHNIQUE: Imaging protocol: Radiologic exam of the chest. Views: 2 views. COMPARISON: No relevant prior studies are available for comparison. FINDINGS: Lungs: Minimal bibasilar atelectasis. Pleural spaces: No large pleural effusion seen. Heart/Mediastinum: No cardiomegaly. Bones/joints: No acute abnormality. IMPRESSION: No acute findings to explain reported symptoms. Dictated and Authenticated by: Aline Watkins MD. Orderin Trent Mcdermott MD
== END 2025-05-19 04:07 | disposition home or self-care (01) ==
PROVIDERS: Emergency Provider Emergency Medicine; PCP Family Medicine
DX: R07.89 Other chest pain (principal); R05.9 Cough, unspecified
CPT/HCPCS: 99283; 99284; 96374; 36415; 80053; 83690; 71046; 81003; 85025; 85379; J1885

== ENCOUNTER 2025-05-21 03:06 | Outpatient (CLI) | payer OTHER, SELFPAY ==
[2025-05-21] MEDS: Inhaler, Assist Device 1 EACH MC (15:55)
[2025-05-21] MEDS: Levalbuterol HFA 15 GM INH 4 PUFF IH (15:55)
--- NOTE | 2025-05-25 09:32 | W.PFT ---
Date of service: 05/21/25 Time of Service: 14:58 Pulmonary Function Test Result Indications: Dyspnea Impression 1. Good patient effort was noted. ATS standards for reproducibility were met. 2. Spirometry showed mild obstructive lung disease with an FEV1 of 95% (3.31 L) 3. Following the administration of a bronchodilator there was not a significant response 4. TLC was normal. No evidence of restrictive lung disease 5. DLCO was normal at 99%
== END 2025-05-21 03:07 | disposition home or self-care (01) ==
LOC: RT 03:06
PROVIDERS: PCP Family Medicine; Visit Provider Internal Medicine Pulmonary Disease
DX: R06.00 Dyspnea, unspecified (principal); R05.1 Acute cough; J44.9 Chronic obstructive pulmonary disease, unspecified
CPT/HCPCS: 94060; 94726; 94729